=== PATIENT | female | born 1960 | race American Indian/Alaskan Native ===

== ENCOUNTER 2016-12-27 10:07 | Outpatient (CLI) | payer MEDICARE ==
--- NOTE | 2016-12-27 10:52 | Mammography Report ---
Bilateral mammogram: Compared to 12/04/15 and 01/09/16. CAD study utilized. Findings: Predominance adipose tissue bilaterally. Benign densities right breast without interval change. No microcalcification. Benign axillary nodes. Impression: Benign findings. Annual followup recommended. BI-RADS CATEGORY: 2 = Benign ACR BI-RADS MAMMOGRAPHIC CODES: 0 = Needs additional imaging evaluation; 1 = Negative; 2 = Benign; 3 = Probably benign; 4 = Suspicious; 5 = Malignant; 6 = Known biopsy-proven malignancy COMMENT: 1. Dense breast tissue, i.e., adenosis, fibrocystic changes, etc., may obscure an underlying neoplasm. 2. Approximately 10% of cancers are not detected with mammography. 3. A negative mammography report should not delay biopsy if a clinically suspicious mass is present. COMMENT: Patient follow-up letters are generated in [employer].
== END 2016-12-27 10:08 | disposition home or self-care (01) ==
LOC: MAMMO 10:07
DX: Z12.31 Encounter for screening mammogram for malignant neoplasm of breast (principal); I10 Essential (primary) hypertension; E11.9 Type 2 diabetes mellitus without complications
CPT/HCPCS: 77067; G0202

== ENCOUNTER 2017-03-26 08:05 | Outpatient (CLI) | payer MEDICARE ==
[2017-03-26] MEDS ORDERED: XYLOCAINE TOPICAL 4% TP ONE (08:57)
[2017-03-26] MEDS ORDERED: SILVER NITRATE TP ONE ×2 (09:32→09:46)
[2017-03-26] MEDS ORDERED: NACL 0.9% 500 ML IR ONE (09:56)
[2017-03-26] MEDS ORDERED: NACL 0.9% IR PRN (10:07)
== END 2017-03-26 08:06 | disposition home or self-care (01) ==
LOC: WOUND 08:05
PROVIDERS: ATTEND Surgery
DX: E11.622 Type 2 diabetes mellitus with other skin ulcer (principal); L97.821 Non-pressure chronic ulcer of other part of left lower leg limited to breakdown of skin; I10 Essential (primary) hypertension
CPT/HCPCS: 11042; 17250; G0463

== ENCOUNTER 2017-04-02 13:06 | Outpatient (CLI) | payer MEDICARE ==
[2017-04-02] MEDS ORDERED: XYLOCAINE TOPICAL 4% TP ONE ×2 (13:39→13:48)
== END 2017-04-02 13:07 | disposition home or self-care (01) ==
LOC: WOUND 13:06
PROVIDERS: ATTEND Surgery
DX: E11.622 Type 2 diabetes mellitus with other skin ulcer (principal); L97.822 Non-pressure chronic ulcer of other part of left lower leg with fat layer exposed; I10 Essential (primary) hypertension

== ENCOUNTER 2017-04-09 13:13 | Outpatient (CLI) | payer MEDICARE ==
[2017-04-09] MEDS ORDERED: XYLOCAINE TOPICAL 4% TP ONE ×2 (13:26→13:31)
[2017-04-09] MEDS ORDERED: NACL 0.9% 500 ML IR ONE (14:18)
[2017-04-10] MEDS ORDERED: NACL 0.9% IR PRN (16:05)
== END 2017-04-09 13:14 | disposition home or self-care (01) ==
LOC: WOUND 13:13
PROVIDERS: ATTEND Surgery
DX: I87.2 Venous insufficiency (chronic) (peripheral) (principal); L97.822 Non-pressure chronic ulcer of other part of left lower leg with fat layer exposed; I10 Essential (primary) hypertension

== ENCOUNTER 2017-04-16 13:01 | Outpatient (CLI) | payer MEDICARE ==
[2017-04-16] MEDS ORDERED: XYLOCAINE TOPICAL 4% TP ONE (14:00)
== END 2017-04-16 13:02 | disposition home or self-care (01) ==
LOC: WOUND 13:01
PROVIDERS: ATTEND Surgery
DX: E11.622 Type 2 diabetes mellitus with other skin ulcer (principal); L97.822 Non-pressure chronic ulcer of other part of left lower leg with fat layer exposed; I10 Essential (primary) hypertension

== ENCOUNTER 2017-04-19 07:46 | Emergency (ER) | payer MEDICARE ==
[2017-04-19 08:59] LABS: Basophils % (Auto) 0.9 % (0.0-1.8); Eosinophils % (Auto) 2.3 % (0.0-4.3); Hematocrit 35.5 % (30.3-42.9); Hemoglobin 11.6 gm/dl (10.1-14.3); Mean Corpuscular HGB Conc 33 % (30-34); Mean Corpuscular Volume 79 fl (79-97); Platelet Count 248 K/mm3 (140-440); Red Cell Distribution Width 14.2 % (13.2-15.2); White Blood Count 7.1 K/mm3 (4.5-11.0)
[2017-04-19 09:02] LABS: Anion Gap 13 mmol/L; BUN/Creatinine Ratio 14.44; Blood Urea Nitrogen 13 mg/dL (7-17); Calcium 8.8 mg/dL (8.4-10.2); Carbon Dioxide 29 mmol/L (22-30); Chloride 97.8 mmol/L (98-107); Glucose 281 mg/dL (65-100); Potassium 3.9 mmol/L (3.6-5.0); Sodium 136 mmol/L (137-145)
[2017-04-19 09:18] LABS: INR 3.56 (0.87-1.13)
[2017-04-19 09:21] LABS: Mean Corpuscular Hemoglobin 26 pg (28-32)
[2017-04-19 09:40] LABS: Partial Thromboplastin Time 63.1 Sec. (24.2-36.6)
--- NOTE | 2017-04-19 17:15 | Emergency Department Report ---
ED General Adult HPI - General Chief complaint: Extremity Injury, Lower Stated complaint: OPEN ULCER ON BACK OF LEG AND BLOOD CLOT Time Seen by Provider: 04/19/17 17:14 Source: patient, RN notes reviewed, old records reviewed Mode of arrival: Ambulatory Limitations: Physical Limitation - History of Present Illness Initial comments: This is a 56-year-old female, she is previously unknown to this provider. Has a past medical history of left lower extremity DVT, currently on anticoagulation , currently going to local wound care. Presents to the ER with acute on chronic left lower extremity pain. Pain is achy, increases with palpation and range of motion, and it decreases with rest. It does not radiate anywhere. No headache, neck pain, chest pain, abdominal pain, short of breath, fevers or chills. No hematemesis or bright red blood per rectum. Patient also indicates that she needs a refill on her diabetic medication; Lantus -: Gradual Location: left, lower extremity Quality: aching Consistency: intermittent Improves with: rest Worsens with: movement Associated Symptoms: denies other symptoms - Related Data Home Medications Medication Instructions Recorded Confirmed Last Taken Lisinopril [Zestril TAB] 10 mg PO QDAY 01/13/14 01/30/14 01/30/14 Triamterene [Dyrenium] 50 mg PO DAILY 01/14/14 01/30/14 01/30/14 glyBURIDE [Diabeta] 5 mg PO BID 01/14/14 01/30/14 01/30/14 Previous Rx's Medication Instructions Recorded Last Taken Type Insulin Glargine,Hum.rec.anlog 30 unit SQ QHS 30 Days 01/17/14 01/30/14 Rx [Lantus] Warfarin Sodium [Coumadin] 7.5 mg PO DAILY #30 tablet 01/17/14 01/30/14 Rx Enoxaparin [Lovenox] 70 mg SUB-Q Q12HR #8 syringe 02/04/14 Unknown Rx oxyCODONE /ACETAMINOPHEN [Percocet 1 tab PO Q6H PRN #15 tablet 02/04/14 Unknown Rx 5/325 mg] Acetaminophen [Tylenol Arthritis] 650 mg PO Q6HR PRN #30 tablet.er 04/19/17 Unknown Rx Insulin Glargine [Lantus] 20 units SQ QHS #1 vial 04/19/17 Unknown Rx Mupirocin [Bactroban 2%] 1 applic TP TID #1 tube 04/19/17 Unknown Rx Allergies Allergy/AdvReac Type Severity Reaction Status Date / Time No Known Allergies Allergy Verified 04/19/17 08:14 ED Review of Systems ROS: Stated complaint: OPEN ULCER ON BACK OF LEG AND BLOOD CLOT Other details as noted in HPI Constitutional: denies: fever Eyes: denies: eye discharge ENT: denies: epistaxis Respiratory: denies: cough Cardiovascular: denies: chest pain Genitourinary: denies: dysuria Musculoskeletal: arthralgia, myalgia Skin: rash, lesions ED Past Medical Hx - Past Medical History Hx Hypertension: Yes Hx Congestive Heart Failure: No Hx Diabetes: Yes Hx Deep Vein Thrombosis: Yes Hx Asthma: No Hx COPD: No - Surgical History Additional Surgical History: c section x 2 - Social History Smoking Status: Never Smoker Substance Use Type: Alcohol, Prescribed - Medications Home Medications: Home Medications Medication Instructions Recorded Confirmed Last Taken Type Lisinopril [Zestril TAB] 10 mg PO QDAY 01/13/14 01/30/14 01/30/14 History Triamterene [Dyrenium] 50 mg PO DAILY 01/14/14 01/30/14 01/30/14 History glyBURIDE [Diabeta] 5 mg PO BID 01/14/14 01/30/14 01/30/14 History Insulin Glargine,Hum.rec.anlog 30 unit SQ QHS 30 Days 01/17/14 01/30/14 Rx [Lantus] Warfarin Sodium [Coumadin] 7.5 mg PO DAILY #30 tablet 01/17/14 01/30/14 Rx Enoxaparin [Lovenox] 70 mg SUB-Q Q12HR #8 syringe 02/04/14 Unknown Rx oxyCODONE /ACETAMINOPHEN [Percocet 1 tab PO Q6H PRN #15 tablet 02/04/14 Unknown Rx 5/325 mg] Acetaminophen [Tylenol Arthritis] 650 mg PO Q6HR PRN #30 tablet.er 04/19/17 Unknown Rx Insulin Glargine [Lantus] 20 units SQ QHS #1 vial 04/19/17 Unknown Rx Mupirocin [Bactroban 2%] 1 applic TP TID #1 tube 04/19/17 Unknown Rx ED Physical Exam - General Limitations: No Limitations General appearance: alert, in no apparent distress - Head Head exam: Present: atraumatic, normocephalic - Eye Eye exam: Present: normal appearance, EOMI. Absent: nystagmus - ENT ENT exam: Present: normal exam, normal orophraynx, mucous membranes moist, normal external ear exam - Neck Neck exam: Present: normal inspection, full ROM. Absent: tenderness, meningismus - Respiratory Respiratory exam: Present: normal lung sounds bilaterally. Absent: respiratory distress, wheezes, rales, rhonchi, stridor, chest wall tenderness, accessory muscle use, decreased breath sounds, prolonged expiratory - Cardiovascular Cardiovascular Exam: Present: regular rate, normal rhythm, normal heart sounds. Absent: bradycardia, tachycardia, irregular rhythm, systolic murmur, diastolic murmur, rubs, gallop - GI/Abdominal GI/Abdominal exam: Present: soft, normal bowel sounds. Absent: distended, tenderness, guarding, rebound, rigid, pulsatile mass - Extremities Exam Extremities exam: Present: normal inspection, tenderness, normal capillary refill, calf tenderness, other (left lower extremity has chronic-appearing ulcerations, soft, there is minimal surrounding erythema, there is no streaking , there is no crepitus, 2+ pulses are noted in the bilateral upper and lower extremities,). Absent: pedal edema, joint swelling - Back Exam Back exam: Present: normal inspection, full ROM. Absent: tenderness, CVA tenderness (R), CVA tenderness (L), muscle spasm, paraspinal tenderness, vertebral tenderness - Neurological Exam Neurological exam: Present: alert, oriented X3, normal gait (patient walks with a slight limp), other (Extraocular movements intact. Tongue midline. No facial droop. Facial sensation intact to light touch in the V1, V2, V3 distribution bilaterally. 5 and 5 strength in 4 extremities.. Sensation is intact to light touch in 4 extremities.). Absent: motor sensory deficit - Psychiatric Psychiatric exam: Present: normal affect, normal mood - Skin Skin exam: Present: warm, rash ED Course Vital Signs 04/19/17 04/19/17 08:07 17:37 Temperature 98.4 F 98.7 F Pulse Rate 102 H 98 H Respiratory 17 19 Rate Blood Pressure 179/98 Blood Pressure 187/84 [Right] O2 Sat by Pulse 99 100 Oximetry ED Medical Decision Making - Lab Data Result diagrams: 04/19/17 08:31 04/19/17 08:31 Vital Signs 04/19/17 08:07 Temperature 98.4 F Pulse Rate 102 H Respiratory 17 Rate Blood Pressure 179/98 O2 Sat by Pulse 99 Oximetry Labs 04/19/17 04/19/17 04/19/17 08:07 08:31 08:31 WBC 7.1 RBC 4.50 Hgb 11.6 Hct 35.5 MCV 79 MCH 26 L MCHC 33 RDW 14.2 Plt Count 248 Lymph % (Auto) 30.9 [place] % (Auto) 7.5 H Eos % (Auto) 2.3 Baso % (Auto) 0.9 Lymph # 2.2 [place] # 0.5 Eos # 0.2 Baso # 0.1 Seg Neutrophils % 58.4 Seg Neutrophils # 4.1 PT INR APTT Sodium 136 L Potassium 3.9 Chloride 97.8 L Carbon Dioxide 29 Anion Gap 13 BUN 13 Creatinine 0.9 Estimated GFR > 60 BUN/Creatinine Ratio 14.44 Glucose 281 H POC Glucose 325 H Calcium 8.8 04/19/17 04/19/17 08:31 16:39 WBC RBC Hgb Hct MCV MCH MCHC RDW Plt Count Lymph % (Auto) [place] % (Auto) Eos % (Auto) Baso % (Auto) Lymph # [place] # Eos # Baso # Seg Neutrophils % Seg Neutrophils # PT 35.9 H INR 3.56 H APTT 63.1 H* Sodium Potassium Chloride Carbon Dioxide Anion Gap BUN Creatinine Estimated GFR BUN/Creatinine Ratio Glucose POC Glucose 312 H Calcium - Radiology Data Radiology results: report reviewed, image reviewed [facility] JORGE A SWIFT Female : 1960 MedRec# [id number] 04/19/17 10:21 - Radiology Dept. Note by CRUZ OLMOS Acct Num: [id number] : 1960 Patient Age: 56 LLE VENOUS DUPLEX COMPLETED. VAS LAB PRELIMINARY REPORT; NO EVIDENCE OF ACUTE DVT NOTED. CHRONIC / RECANALIZED TRACES OF THROMBUS NOTED IN LT. POP V AND PERONEAL V'S. DOMINANT INGUINAL LYMPH NODE NOTED IN LT. GROIN. PHYSICIANS REPORT TO FOLLOW...(RSK) Initialized on 04/19/17 10:21 - END OF NOTE - Medical Decision Making Differential diagnosis: Stasis dermatitis, recurrent DVT, medication refill, incidental hyperglycemia, incidental hypertension, supratherapeutic INR Assessment and plan: 56-year-old female with chronic left lower extremity pain, ulceration, or any following up with outpatient wound care, presenting with acute on chronic pain. She is afebrile, tachycardia has resolved, with chronic hypertension. She reports having an appointment with a new primary care doctor on April 29. She requested a refill for her Lantus medication. I appreciated the patient has minimal erythema surrounding her wound, however this is most likely a stasis dermatitis. She is following up on a weekly basis with the local wound care center, and there does not appear to be any emergent condition at this time. Given that she is on systemic anticoagulation, she is not a candidate for NSAIDs. She is able to weight-bear, and a notably the patient requires narcotic therapy at this time. She will be discharged with acetaminophen for pain, Bactroban ointment, Lantus refill, instructions to closely follow up with outpatient wound care and primary care. Return precautions are reviewed. Critical care attestation.: If time is entered above; I have spent that time in minutes in the direct care of this critically ill patient, excluding procedure time. ED Disposition Clinical Impression: Left leg pain, Supratherapeutic INR, Elevated blood pressure reading Disposition: -01 TO HOME OR SELFCARE Is pt being admited?: No Does the pt Need Aspirin: No Condition: Stable Additional Instructions: Continue current outpatient medications. Follow-up with the primary care doctor within the next 3-4 weeks for hypertension and hyperglycemia. It is very important to closely follow up with outpatient primary care, is poorly controlled blood pressure and diabetes can result in , disability, paralysis, heart attack and stroke. Continue weekly wound care, the lesions noted on the left lower extremity are mostly chronic ulcerations with a component of stasis dermatitis. These typically did not require oral or systemic antibiotics. INR/Coumadin level was elevated, decreased Coumadin to 2.5 mg for the next 2 days,, then follow up with the primary care doctor or medical professional in 48 hours for INR recheck. Return to the ER right away with fevers, chills, lethargy, irritability, projectile vomiting, change in mental status, inability to tolerate liquid feeds. Prescriptions: Insulin Glargine [Lantus] 20 units SQ QHS #1 vial Acetaminophen [Tylenol Arthritis] 650 mg PO Q6HR PRN #30 tablet.er PRN Reason: Pain Mupirocin [Bactroban 2%] 1 applic TP TID #1 tube Referrals: PRIMARY CARE, [Primary Care Provider] - 3-5 Days BIMAL BRYANT MD [Referring] - 3-5 Days MIRIAM BRYANT MD [Staff Physician] - 3-5 Days
[2017-04-19] MEDS ORDERED: TYLENOL PO ONE (17:30)
[2017-04-19 17:38] VITALS: BP 187/84
--- NOTE | 2017-04-21 07:32 | Vascular Lab Report ---
Left Lower Extremity Venous Duplex Study: Reason for Exam: Pain and swelling of the left lower extremity. Comments on the Right: Nonocclusive deep venous thrombosis is noted of the peroneal vein extending into the popliteal vein. The remaining veins visualized are freely compressible without evidence of internal echogenicity. Spontaneous and phasic flow is present proximally. Comments on the Left: All veins visualized are freely compressible without evidence of internal echogenicity. Flow is spontaneous and phasic throughout. No evidence of acute or chronic thrombus is seen in any of the vessels visualized. Impression: Chronic deep venous thrombosis in the left lower extremity
== END 2017-04-19 18:01 | disposition home or self-care (01) ==
LOC: ED 07:46
DX: M79.605 Pain in left leg (principal); I10 Essential (primary) hypertension; R79.1 Abnormal coagulation profile; E11.9 Type 2 diabetes mellitus without complications
CPT/HCPCS: 36415; 80048; 82962; 85025; 85610; 85730

== ENCOUNTER 2017-04-23 13:45 | Outpatient (CLI) | payer MEDICARE ==
[2017-04-23] MEDS ORDERED: XYLOCAINE TOPICAL 4% TP ONE ×3 (14:02→14:28)
== END 2017-04-23 13:46 | disposition home or self-care (01) ==
LOC: WOUND 13:45
PROVIDERS: ATTEND Surgery
DX: E11.622 Type 2 diabetes mellitus with other skin ulcer (principal); L97.822 Non-pressure chronic ulcer of other part of left lower leg with fat layer exposed; I10 Essential (primary) hypertension

== ENCOUNTER 2017-04-30 14:16 | Outpatient (CLI) | payer MEDICARE ==
[2017-04-30] MEDS ORDERED: XYLOCAINE TOPICAL 4% TP ONE ×2 (14:27→14:44)
[2017-04-30] MEDS ORDERED: XYLOCAINE TOPICAL 2% TP ONE ×2 (14:27→14:43)
== END 2017-04-30 14:17 | disposition home or self-care (01) ==
LOC: WOUND 14:16
PROVIDERS: ATTEND Surgery
DX: E11.622 Type 2 diabetes mellitus with other skin ulcer (principal); L97.822 Non-pressure chronic ulcer of other part of left lower leg with fat layer exposed; E11.40 Type 2 diabetes mellitus with diabetic neuropathy, unspecified; I10 Essential (primary) hypertension

== ENCOUNTER 2017-05-07 08:29 | Outpatient (CLI) | payer MEDICARE ==
[2017-05-07] MEDS ORDERED: XYLOCAINE TOPICAL 4% TP ONE ×2 (08:54→09:08)
[2017-05-07] MEDS ORDERED: XYLOCAINE TOPICAL 2% TP ONE ×2 (09:04→09:08)
[2017-05-07] MEDS ORDERED: SILVER NITRATE TP ONE ×2 (09:39→15:10)
== END 2017-05-07 08:30 | disposition home or self-care (01) ==
LOC: WOUND 08:29
PROVIDERS: ATTEND Surgery
DX: E11.622 Type 2 diabetes mellitus with other skin ulcer (principal); L97.822 Non-pressure chronic ulcer of other part of left lower leg with fat layer exposed; I10 Essential (primary) hypertension

== ENCOUNTER 2017-05-13 08:27 | Outpatient (CLI) | payer MEDICARE ==
--- NOTE | 2017-05-14 08:09 | Vascular Lab Report ---
Left Lower Extremity Venous Duplex Study: Reason for Exam: Pain of the left lower extremity. Comments on the Right: A limited duplex study was done of the proximal veins of the right lower extremity. All veins visualized are freely compressible without evidence of internal echogenicity. Flow is spontaneous and phasic throughout. No evidence of acute or chronic thrombus is seen in any of the vessels visualized. Comments on the Left: Chronic nonocclusive deep venous thrombosis is noted of the popliteal vein. The remaining veins visualized are freely compressible without evidence of internal echogenicity. Spontaneous and phasic flow is present proximally. Impression: Chronic deep venous thrombosis in the left lower extremity
== END 2017-05-13 08:28 | disposition home or self-care (01) ==
LOC: VAS 08:27
PROVIDERS: ATTEND Surgery
DX: I82.532 Chronic embolism and thrombosis of left popliteal vein (principal)

== ENCOUNTER 2017-05-14 08:26 | Outpatient (CLI) | payer MEDICARE ==
[2017-05-14] MEDS ORDERED: XYLOCAINE TOPICAL 2% TP ONE ×2 (08:54→10:00)
[2017-05-14] MEDS ORDERED: XYLOCAINE TOPICAL 4% TP ONE ×2 (08:54→09:00)
[2017-05-14] MEDS ORDERED: AD OINTMENT TP ONE (09:25)
[2017-05-15] MEDS ORDERED: AD OINTMENT TP SCH (10:00)
== END 2017-05-14 08:27 | disposition home or self-care (01) ==
LOC: WOUND 08:26
PROVIDERS: ATTEND Surgery
DX: E11.622 Type 2 diabetes mellitus with other skin ulcer (principal); L97.822 Non-pressure chronic ulcer of other part of left lower leg with fat layer exposed; E11.40 Type 2 diabetes mellitus with diabetic neuropathy, unspecified; I10 Essential (primary) hypertension
CPT/HCPCS: A6250

== ENCOUNTER 2017-05-21 08:29 | Outpatient (CLI) | payer MEDICARE, MEDICAID ==
[2017-05-21] MEDS ORDERED: XYLOCAINE TOPICAL 2% TP ONE ×2 (08:47→09:02)
[2017-05-21] MEDS ORDERED: XYLOCAINE TOPICAL 4% TP ONE ×2 (08:47→09:02)
== END 2017-05-21 08:30 | disposition home or self-care (01) ==
LOC: WOUND 08:29
PROVIDERS: ATTEND Surgery
DX: E11.622 Type 2 diabetes mellitus with other skin ulcer (principal); L97.822 Non-pressure chronic ulcer of other part of left lower leg with fat layer exposed

== ENCOUNTER 2017-05-26 12:45 | Outpatient (CLI) | payer MEDICARE ==
--- NOTE | 2017-05-27 07:29 | Vascular Lab Report ---
LEFT LOWER EXTREMITY ARTERIAL DUPLEX: REASON FOR EXAM: Left leg ulcer. COMMENTS ON THE LEFT: Triphasic waveforms are seen proximally. Triphasic waveforms are seen distally. No significant velocity gradients are identified. No focal significant plaque is identified. Findings are consistent with normal perfusion. Findings are consistent with the ability to heal distal wounds. IMPRESSION: LEFT:Essentially normal arterial flow.
== END 2017-05-26 12:46 | disposition home or self-care (01) ==
LOC: VAS 12:45
PROVIDERS: ATTEND Surgery
DX: L97.822 Non-pressure chronic ulcer of other part of left lower leg with fat layer exposed (principal)

== ENCOUNTER 2017-05-28 08:42 | Outpatient (CLI) | payer MEDICARE ==
[2017-05-28] MEDS ORDERED: XYLOCAINE TOPICAL 4% TP ONE (08:47)
[2017-05-28] MEDS ORDERED: NACL 0.9% 500 ML IR ONE (10:10)
[2017-05-28] MEDS ORDERED: NACL 0.9% IR PRN (13:40)
== END 2017-05-28 08:43 | disposition home or self-care (01) ==
LOC: WOUND 08:42
PROVIDERS: ATTEND Surgery
DX: E11.622 Type 2 diabetes mellitus with other skin ulcer (principal); L97.822 Non-pressure chronic ulcer of other part of left lower leg with fat layer exposed; I10 Essential (primary) hypertension

== ENCOUNTER 2017-06-11 08:20 | Outpatient (CLI) | payer MEDICARE ==
[2017-06-11] MEDS ORDERED: XYLOCAINE TOPICAL 2% TP ONE (09:05)
[2017-06-11] MEDS ORDERED: XYLOCAINE TOPICAL 4% TP ONE (09:05)
[2017-06-11] MEDS ORDERED: NACL 0.9% IR PRN (09:06)
== END 2017-06-11 08:21 | disposition home or self-care (01) ==
LOC: WOUND 08:20
PROVIDERS: ATTEND Surgery
DX: E11.622 Type 2 diabetes mellitus with other skin ulcer (principal); L97.822 Non-pressure chronic ulcer of other part of left lower leg with fat layer exposed; I10 Essential (primary) hypertension

== ENCOUNTER 2017-06-25 08:30 | Outpatient (CLI) | payer MEDICARE ==
[2017-06-25] MEDS ORDERED: XYLOCAINE TOPICAL 2% 30ML TP ONE (08:56)
[2017-06-25] MEDS ORDERED: XYLOCAINE TOPICAL 4% TP ONE ×2 (08:56→09:09)
[2017-06-25] MEDS ORDERED: XYLOCAINE TOPICAL 2% 5ML ONE (09:08)
[2017-06-25] MEDS ORDERED: DAKIN'S FULL STRENGTH TP ONE (09:51)
== END 2017-06-25 08:31 | disposition home or self-care (01) ==
LOC: WOUND 08:30
PROVIDERS: ATTEND Surgery
DX: E11.622 Type 2 diabetes mellitus with other skin ulcer (principal); L97.822 Non-pressure chronic ulcer of other part of left lower leg with fat layer exposed; I10 Essential (primary) hypertension

== ENCOUNTER 2017-07-02 08:34 | Outpatient (CLI) | payer MEDICARE ==
[2017-07-02] MEDS ORDERED: XYLOCAINE TOPICAL 4% TP ONE (08:40)
[2017-07-02] MEDS ORDERED: XYLOCAINE TOPICAL 2% 5ML ONE (08:40)
[2017-07-02] MEDS ORDERED: NACL 0.9% 500 ML IR ONE (09:56)
== END 2017-07-02 08:35 | disposition home or self-care (01) ==
LOC: WOUND 08:34
PROVIDERS: ATTEND Surgery
DX: E11.622 Type 2 diabetes mellitus with other skin ulcer (principal); L97.822 Non-pressure chronic ulcer of other part of left lower leg with fat layer exposed; I10 Essential (primary) hypertension

== ENCOUNTER 2017-07-09 08:45 | Outpatient (CLI) | payer MEDICARE ==
[2017-07-09] MEDS ORDERED: XYLOCAINE TOPICAL 2% 30ML TP ONE (09:10)
[2017-07-09] MEDS ORDERED: XYLOCAINE TOPICAL 4% TP ONE (09:10)
[2017-07-09] MEDS ORDERED: XYLOCAINE TOPICAL 2% 5ML ONE (09:14)
[2017-07-09] MEDS ORDERED: SILVER NITRATE TP ONE (09:54)
== END 2017-07-09 08:46 | disposition home or self-care (01) ==
LOC: WOUND 08:45
PROVIDERS: ATTEND Surgery
DX: E11.622 Type 2 diabetes mellitus with other skin ulcer (principal); L97.822 Non-pressure chronic ulcer of other part of left lower leg with fat layer exposed; I10 Essential (primary) hypertension

== ENCOUNTER 2017-07-16 08:31 | Outpatient (CLI) | payer MEDICARE ==
[2017-07-16] MEDS ORDERED: XYLOCAINE TOPICAL 4% TP ONE ×2 (08:51→09:01)
[2017-07-16] MEDS ORDERED: XYLOCAINE TOPICAL 2% 5ML ONE (08:51)
[2017-07-16] MEDS ORDERED: XYLOCAINE TOPICAL 2% 5ML TP ONE (09:02)
== END 2017-07-16 08:32 | disposition home or self-care (01) ==
LOC: WOUND 08:31
PROVIDERS: ATTEND Surgery
DX: E11.622 Type 2 diabetes mellitus with other skin ulcer (principal); L97.822 Non-pressure chronic ulcer of other part of left lower leg with fat layer exposed; I10 Essential (primary) hypertension

== ENCOUNTER 2017-07-22 08:10 | Outpatient (CLI) | payer MEDICARE ==
[2017-07-22] MEDS ORDERED: XYLOCAINE TOPICAL 4% TP ONE (08:33)
[2017-07-22] MEDS ORDERED: AD OINTMENT TP ONE (09:47)
[2017-07-23] MEDS ORDERED: AD OINTMENT TP SCH (10:00)
== END 2017-07-22 08:11 | disposition home or self-care (01) ==
LOC: WOUND 08:10
PROVIDERS: ATTEND Surgery
DX: E11.622 Type 2 diabetes mellitus with other skin ulcer (principal); L97.822 Non-pressure chronic ulcer of other part of left lower leg with fat layer exposed; I10 Essential (primary) hypertension
CPT/HCPCS: A6250

== ENCOUNTER 2017-07-22 10:07 | Emergency (ER) | payer MEDICARE ==
[2017-07-22 11:01] VITALS: BP 164/84
[2017-07-22] MEDS ORDERED: FUL-GLO OP ONE (14:59)
--- NOTE | 2017-07-22 15:17 | Emergency Department Report ---
ED Eye Problem HPI - General Chief complaint: Eye Problems Stated complaint: LEFT EYE PAIN Time Seen by Provider: 07/22/17 13:14 Source: patient Mode of arrival: Ambulatory Limitations: No Limitations - History of Present Illness Initial comments: 56-year-old female past medical history DVT on Coumadin, HTN, Dmt2 presents with complaint of over one month of intermittent blurry vision left eye. Patient also states she has foreign body sensation with scratchy sensation left eye. Patient states that she has artificial eyelashes which may have scratched the surface of her eye. Patient denies discharge denies eye pain but does have slight foreign body sensation and occasional itching. Patient states she was supposed to follow-up with an tint layer earlier this month but has rescheduled see an tint layer on 07/29/2017. Tetanus vaccine up-to-date. Patient also states she has not had her glasses prescription adjusted in over 6 years. MD chief complaint: vision change Onset/Timin -: month(s) Location: left eye Place: home Eye Symptoms: redness, foreign body sensation, itching, blurry vision Severity: moderate Associated Symptoms: none Treatments Prior to Arrival: none - Related Data Patient Tetanus UTD: No Home Medications Medication Instructions Recorded Confirmed Last Taken Lisinopril [Zestril TAB] 10 mg PO QDAY 01/13/14 01/30/14 01/30/14 Triamterene [Dyrenium] 50 mg PO DAILY 01/14/14 01/30/14 01/30/14 glyBURIDE [Diabeta] 5 mg PO BID 01/14/14 01/30/14 01/30/14 Previous Rx's Medication Instructions Recorded Last Taken Type Insulin Glargine,Hum.rec.anlog 30 unit SQ QHS 30 Days ml 01/17/14 01/30/14 Rx [Lantus] Warfarin Sodium [Coumadin] 7.5 mg PO DAILY #30 tablet 01/17/14 01/30/14 Rx Enoxaparin [Lovenox] 70 mg SUB-Q Q12HR #8 syringe 02/04/14 Unknown Rx oxyCODONE /ACETAMINOPHEN [Percocet 1 tab PO Q6H PRN #15 tablet 02/04/14 Unknown Rx 5/325 mg] Acetaminophen [Tylenol Arthritis] 650 mg PO Q6HR PRN #30 tablet.er 04/19/17 Unknown Rx Insulin Glargine [Lantus] 20 units SQ QHS #1 vial 04/19/17 Unknown Rx Mupirocin [Bactroban 2%] 1 applic TP TID #1 tube 04/19/17 Unknown Rx Naphazoline HCl/Pheniramine 10 ml OP Q6H PRN #1 drops 07/22/17 Unknown Rx [Naphcon-A Eye Drops] Tobramycin 0.3% [Tobrex] 1 drop OS Q4H #1 bottle 07/22/17 Unknown Rx Allergies Allergy/AdvReac Type Severity Reaction Status Date / Time sulfamethoxazole Allergy Nausea Verified 07/22/17 10:54 [From Bactrim] trimethoprim [From Bactrim] Allergy Nausea Verified 07/22/17 10:54 ED Review of Systems ROS: Stated complaint: LEFT EYE PAIN Other details as noted in HPI Constitutional: denies: chills, fever Eyes: vision change (blurry vision right eye). denies: eye pain, eye discharge ENT: denies: ear pain, throat pain Respiratory: denies: cough, shortness of breath, wheezing Cardiovascular: denies: chest pain, palpitations Endocrine: no symptoms reported Gastrointestinal: denies: abdominal pain, nausea, diarrhea Genitourinary: denies: urgency, dysuria, discharge Musculoskeletal: denies: back pain, joint swelling, arthralgia Skin: denies: rash, lesions Neurological: denies: headache, weakness, paresthesias Psychiatric: denies: anxiety, depression Hematological/Lymphatic: denies: easy bleeding, easy bruising ED Past Medical Hx - Past Medical History Hx Hypertension: Yes Hx Congestive Heart Failure: No Hx Diabetes: Yes Hx Deep Vein Thrombosis: Yes Hx Asthma: No Hx COPD: No - Surgical History Additional Surgical History: c section x 2 - Social History Smoking Status: Never Smoker Substance Use Type: None, Alcohol - Medications Home Medications: Home Medications Medication Instructions Recorded Confirmed Last Taken Type Lisinopril [Zestril TAB] 10 mg PO QDAY 01/13/14 01/30/14 01/30/14 History Triamterene [Dyrenium] 50 mg PO DAILY 01/14/14 01/30/14 01/30/14 History glyBURIDE [Diabeta] 5 mg PO BID 01/14/14 01/30/14 01/30/14 History Insulin Glargine,Hum.rec.anlog 30 unit SQ QHS 30 Days ml 01/17/14 01/30/1401/08 Rx [Lantus] Warfarin Sodium [Coumadin] 7.5 mg PO DAILY #30 tablet 01/17/14 01/30/14 Rx Enoxaparin [Lovenox] 70 mg SUB-Q Q12HR #8 syringe 02/04/14 Unknown Rx oxyCODONE /ACETAMINOPHEN [Percocet 1 tab PO Q6H PRN #15 tablet 02/04/14 Unknown Rx 5/325 mg] Acetaminophen [Tylenol Arthritis] 650 mg PO Q6HR PRN #30 tablet.er 04/19/17 Unknown Rx Insulin Glargine [Lantus] 20 units SQ QHS #1 vial 04/19/17 Unknown Rx Mupirocin [Bactroban 2%] 1 applic TP TID #1 tube 04/19/17 Unknown Rx Naphazoline HCl/Pheniramine 10 ml OP Q6H PRN #1 drops 07/22/17 Unknown Rx [Naphcon-A Eye Drops] Tobramycin 0.3% [Tobrex] 1 drop OS Q4H #1 bottle 07/22/17 Unknown Rx ED Physical Exam - General Limitations: No Limitations General appearance: alert, in no apparent distress - Head Head exam: Present: atraumatic, normocephalic - Eye Eye exam: Present: normal appearance, PERRL, EOMI Pupils: Present: normal accommodation - Expanded Eye Exam Expanded Pupils: Regular, Round: Bilateral, Reactive: Bilateral Sclera/Conjunctival: Normal Inspection: Bilateral Anterior chamber: Normal Inspection: Bilateral Posterior chamber: Deferred: Bilateral Visual acuity (R) = 20/: 80 Visual acuity (L) = 20/: 80 With correction: Yes (glasses) IOP (R) in mmH IOP measured with: [employer] - ENT ENT exam: Present: mucous membranes moist - Neck Neck exam: Present: normal inspection - Respiratory Respiratory exam: Present: normal lung sounds bilaterally. Absent: respiratory distress - Cardiovascular Cardiovascular Exam: Present: regular rate, normal rhythm. Absent: systolic murmur, diastolic murmur, rubs, gallop - GI/Abdominal GI/Abdominal exam: Present: soft, normal bowel sounds - Extremities Exam Extremities exam: Present: normal inspection - Back Exam Back exam: Present: normal inspection - Neurological Exam Neurological exam: Present: alert, oriented X3 - Psychiatric Psychiatric exam: Present: normal affect, normal mood - Skin Skin exam: Present: warm, dry, intact, normal color. Absent: rash ED Course Vital Signs 07/22/17 10:54 Temperature 98.4 F Pulse Rate 93 H Respiratory 20 Rate Blood Pressure 164/84 O2 Sat by Pulse 98 Oximetry ED Medical Decision Making - Medical Decision Making A/P: Left corneal abrasion, possible macular degeneration 1- tdap uptodate 2- tobramycin drops, naphcon a drops 3- no clinical amarousis fugax, no acute angle glaucoma, IOP less then 20 x3 left eye. Overall vision 20/80 4- patient states she has follow-up with ophthalmology. I emphasized the importance of follow-up to the patient to mitigate any prison potential permanent eyesight problems. Patient also may have a combination of aggressive diabetic retinopathy and macular degeneration. This is why I emphasized importance of follow-up to ophthalmology. Patient states that she will definitely follow up. Conversation witnessed by her at bedside. Critical care attestation.: If time is entered above; I have spent that time in minutes in the direct care of this critically ill patient, excluding procedure time. ED Disposition Clinical Impression: Blurry vision, left eye Corneal abrasion, left Qualifiers: Encounter type: initial encounter Qualified Code(s): S05.02XA - Injury of conjunctiva and corneal abrasion without foreign body, left eye, initial encounter Disposition: DC-01 TO HOME OR SELFCARE Is pt being admited?: No Does the pt Need Aspirin: No Condition: Stable Instructions: Corneal Abrasion (ED), Age-Related Macular Degeneration: (ED), Diabetic Retinopathy (ED) Prescriptions: Naphazoline HCl/Pheniramine [Naphcon-A Eye Drops] 10 ml OP Q6H PRN #1 drops PRN Reason: Dry Eye(S) Tobramycin 0.3% [Tobrex] 1 drop OS Q4H #1 bottle Referrals: [facility] [Outside] - 3-5 Days [facility] [Outside] - 3-5 Days Forms: Accompanied Note, Work/School Release Form(ED) Time of Disposition: 15:27
[2017-07-22] MEDS ORDERED: TYLENOL PO ONE (15:39)
== END 2017-07-22 15:30 | disposition home or self-care (01) ==
LOC: ED 10:07
DX: S05.02XA Injury of conjunctiva and corneal abrasion without foreign body, left eye, initial encounter (principal); H53.8 Other visual disturbances; I10 Essential (primary) hypertension; E11.9 Type 2 diabetes mellitus without complications; I82.409 Acute embolism and thrombosis of unspecified deep veins of unspecified lower extremity; Z88.2 Allergy status to sulfonamides; Z79.4 Long term (current) use of insulin; X58.XXXA Exposure to other specified factors, initial encounter; Y93.89 Activity, other specified; Y92.89 Other specified places as the place of occurrence of the external cause; Y99.8 Other external cause status
CPT/HCPCS: 82962; 99283

== ENCOUNTER 2017-07-30 08:43 | Outpatient (CLI) | payer MEDICARE ==
[2017-07-30] MEDS ORDERED: XYLOCAINE TOPICAL 2% 5ML ONE (09:10)
[2017-07-30] MEDS ORDERED: XYLOCAINE TOPICAL 4% TP ONE ×2 (09:10→09:18)
[2017-07-30] MEDS ORDERED: XYLOCAINE TOPICAL 2% 5ML TP ONE (09:18)
== END 2017-07-30 08:44 | disposition home or self-care (01) ==
LOC: WOUND 08:43
PROVIDERS: ATTEND Surgery
DX: E11.622 Type 2 diabetes mellitus with other skin ulcer (principal); L97.822 Non-pressure chronic ulcer of other part of left lower leg with fat layer exposed; I10 Essential (primary) hypertension

== ENCOUNTER 2017-08-06 08:41 | Outpatient (CLI) | payer MEDICARE ==
[2017-08-06] MEDS ORDERED: XYLOCAINE TOPICAL 4% TP ONE ×2 (08:55→09:03)
== END 2017-08-06 08:42 | disposition home or self-care (01) ==
LOC: WOUND 08:41
PROVIDERS: ATTEND Surgery
DX: E11.622 Type 2 diabetes mellitus with other skin ulcer (principal); L97.822 Non-pressure chronic ulcer of other part of left lower leg with fat layer exposed; I10 Essential (primary) hypertension

== ENCOUNTER 2017-08-14 08:36 | Outpatient (CLI) | payer MEDICARE ==
[2017-08-14] MEDS ORDERED: XYLOCAINE TOPICAL 4% TP ONE ×3 (09:02→11:53)
[2017-08-14] MEDS ORDERED: NACL 0.9% 500 ML IR ONE (09:04)
[2017-08-14] MEDS ORDERED: NACL 0.9% IR PRN (11:52)
== END 2017-08-14 08:37 | disposition home or self-care (01) ==
LOC: WOUND 08:36
PROVIDERS: ATTEND Surgery
DX: E11.622 Type 2 diabetes mellitus with other skin ulcer (principal); L97.822 Non-pressure chronic ulcer of other part of left lower leg with fat layer exposed; I10 Essential (primary) hypertension

== ENCOUNTER 2017-08-20 09:44 | Outpatient (CLI) | payer MEDICARE ==
[2017-08-20] MEDS ORDERED: XYLOCAINE TOPICAL 4% TP ONE (10:10)
== END 2017-08-20 09:45 | disposition home or self-care (01) ==
LOC: WOUND 09:44
PROVIDERS: ATTEND Surgery
DX: E11.622 Type 2 diabetes mellitus with other skin ulcer (principal); L97.822 Non-pressure chronic ulcer of other part of left lower leg with fat layer exposed; I10 Essential (primary) hypertension
CPT/HCPCS: 97607

== ENCOUNTER 2017-08-25 09:11 | Outpatient (CLI) | payer MEDICARE | END 2017-08-25 09:12 | disposition home or self-care (01) | LOC: WOUND 09:11 | PROVIDERS: ATTEND Internal Medicine | DX: E11.622 Type 2 diabetes mellitus with other skin ulcer (principal); L97.822 Non-pressure chronic ulcer of other part of left lower leg with fat layer exposed; I10 Essential (primary) hypertension | CPT/HCPCS: 97608; G0463-25 ==

== ENCOUNTER 2017-08-27 08:37 | Outpatient (CLI) | payer MEDICARE ==
[2017-08-27] MEDS ORDERED: XYLOCAINE TOPICAL 4% TP ONE ×2 (08:53→08:56)
== END 2017-08-27 08:38 | disposition home or self-care (01) ==
LOC: WOUND 08:37
PROVIDERS: ATTEND Surgery
DX: E11.622 Type 2 diabetes mellitus with other skin ulcer (principal); L97.822 Non-pressure chronic ulcer of other part of left lower leg with fat layer exposed; I10 Essential (primary) hypertension
CPT/HCPCS: 97607

== ENCOUNTER 2017-09-03 08:20 | Outpatient (CLI) | payer MEDICARE ==
[2017-09-03] MEDS ORDERED: XYLOCAINE TOPICAL 4% TP ONE (08:37)
[2017-09-03] MEDS ORDERED: AD OINTMENT TP SCH (10:00)
== END 2017-09-03 08:21 | disposition home or self-care (01) ==
LOC: WOUND 08:20
PROVIDERS: ATTEND Surgery
DX: E11.622 Type 2 diabetes mellitus with other skin ulcer (principal); L97.822 Non-pressure chronic ulcer of other part of left lower leg with fat layer exposed; I10 Essential (primary) hypertension
CPT/HCPCS: A6250

== ENCOUNTER 2017-09-17 08:36 | Outpatient (CLI) | payer MEDICARE ==
[2017-09-17] MEDS ORDERED: XYLOCAINE TOPICAL 4% TP ONE (08:42)
== END 2017-09-17 08:37 | disposition home or self-care (01) ==
LOC: WOUND 08:36
PROVIDERS: ATTEND Surgery
DX: E11.622 Type 2 diabetes mellitus with other skin ulcer (principal); L97.822 Non-pressure chronic ulcer of other part of left lower leg with fat layer exposed; I10 Essential (primary) hypertension

== ENCOUNTER 2017-09-24 08:32 | Outpatient (CLI) | payer MEDICARE ==
[2017-09-24] MEDS ORDERED: XYLOCAINE TOPICAL 4% TP ONE (08:44)
== END 2017-09-24 08:33 | disposition home or self-care (01) ==
LOC: WOUND 08:32
PROVIDERS: ATTEND Surgery
DX: E11.622 Type 2 diabetes mellitus with other skin ulcer (principal); L97.822 Non-pressure chronic ulcer of other part of left lower leg with fat layer exposed; I10 Essential (primary) hypertension

== ENCOUNTER 2017-10-01 08:30 | Outpatient (CLI) | payer MEDICARE ==
[2017-10-01] MEDS ORDERED: XYLOCAINE TOPICAL 4% TP ONE (08:54)
== END 2017-10-01 08:31 | disposition home or self-care (01) ==
LOC: WOUND 08:30
PROVIDERS: ATTEND Surgery
DX: E11.622 Type 2 diabetes mellitus with other skin ulcer (principal); L97.822 Non-pressure chronic ulcer of other part of left lower leg with fat layer exposed; I10 Essential (primary) hypertension

== ENCOUNTER 2017-10-08 08:33 | Outpatient (CLI) | payer MEDICARE ==
[2017-10-08] MEDS ORDERED: XYLOCAINE TOPICAL 4% TP ONE ×2 (08:43→08:46)
== END 2017-10-08 08:34 | disposition home or self-care (01) ==
LOC: WOUND 08:33
PROVIDERS: ATTEND Surgery
DX: E11.622 Type 2 diabetes mellitus with other skin ulcer (principal); L97.822 Non-pressure chronic ulcer of other part of left lower leg with fat layer exposed; I10 Essential (primary) hypertension

== ENCOUNTER 2017-10-14 10:08 | Outpatient (CLI) | payer MEDICARE ==
[2017-10-14] MEDS ORDERED: XYLOCAINE TOPICAL 4% TP ONE (10:26)
== END 2017-10-14 10:09 | disposition home or self-care (01) ==
LOC: WOUND 10:08
PROVIDERS: ATTEND Surgery
DX: E11.622 Type 2 diabetes mellitus with other skin ulcer (principal); L97.822 Non-pressure chronic ulcer of other part of left lower leg with fat layer exposed; I10 Essential (primary) hypertension

== ENCOUNTER 2017-10-22 13:31 | Outpatient (CLI) | payer MEDICARE ==
[2017-10-22] MEDS ORDERED: XYLOCAINE TOPICAL 4% TP ONE (13:42)
[2017-10-22] MEDS ORDERED: XYLOCAINE TOPICAL 2% 30ML TP ONE (13:46)
== END 2017-10-22 13:32 | disposition home or self-care (01) ==
LOC: WOUND 13:31
PROVIDERS: ATTEND Surgery
DX: E11.622 Type 2 diabetes mellitus with other skin ulcer (principal); L97.822 Non-pressure chronic ulcer of other part of left lower leg with fat layer exposed; I10 Essential (primary) hypertension

== ENCOUNTER 2017-10-29 13:17 | Outpatient (CLI) | payer MEDICARE ==
[~2017-10-29 13:17] MED LIST: VANCOMYCIN/NS 1 GM/250 ML 1 GM/250 ML BAG IV SCH
[2017-10-29] MEDS ORDERED: XYLOCAINE TOPICAL 4% TP ONE ×2 (13:51→13:57)
== END 2017-10-29 13:18 | disposition home or self-care (01) ==
LOC: WOUND 13:17
PROVIDERS: ATTEND Nurse Practitioner
DX: I87.312 Chronic venous hypertension (idiopathic) with ulcer of left lower extremity (principal); E11.622 Type 2 diabetes mellitus with other skin ulcer; L97.822 Non-pressure chronic ulcer of other part of left lower leg with fat layer exposed
CPT/HCPCS: 11042; 11045; J3370

== ENCOUNTER 2017-11-04 13:55 | Outpatient (CLI) | payer MEDICARE ==
[2017-11-04] MEDS ORDERED: NACL 0.9% 500 ML IR ONE (14:08)
[2017-11-04] MEDS ORDERED: XYLOCAINE TOPICAL 4% TP ONE ×2 (14:08)
[2017-11-04] MEDS ORDERED: NACL 0.9% IR PRN (14:08)
== END 2017-11-04 13:56 | disposition home or self-care (01) ==
LOC: WOUND 13:55
PROVIDERS: ATTEND Surgery
DX: I87.312 Chronic venous hypertension (idiopathic) with ulcer of left lower extremity (principal); E11.622 Type 2 diabetes mellitus with other skin ulcer; L97.822 Non-pressure chronic ulcer of other part of left lower leg with fat layer exposed

== ENCOUNTER 2017-11-12 12:56 | Outpatient (CLI) | payer MEDICARE ==
[2017-11-12] MEDS ORDERED: XYLOCAINE TOPICAL 4% TP ONE (13:13)
== END 2017-11-12 12:57 | disposition home or self-care (01) ==
LOC: WOUND 12:56
PROVIDERS: ATTEND Surgery
DX: I87.312 Chronic venous hypertension (idiopathic) with ulcer of left lower extremity (principal); E11.622 Type 2 diabetes mellitus with other skin ulcer; L97.822 Non-pressure chronic ulcer of other part of left lower leg with fat layer exposed

== ENCOUNTER 2017-11-19 13:10 | Outpatient (CLI) | payer MEDICARE ==
[2017-11-19] MEDS ORDERED: XYLOCAINE TOPICAL 4% TP ONE (13:39)
== END 2017-11-19 13:11 | disposition home or self-care (01) ==
LOC: WOUND 13:10
PROVIDERS: ATTEND Surgery
DX: I87.312 Chronic venous hypertension (idiopathic) with ulcer of left lower extremity (principal); E11.622 Type 2 diabetes mellitus with other skin ulcer; L97.822 Non-pressure chronic ulcer of other part of left lower leg with fat layer exposed

== ENCOUNTER 2017-11-26 13:20 | Outpatient (CLI) | payer MEDICARE ==
[2017-11-26] MEDS ORDERED: XYLOCAINE TOPICAL 4% TP ONE ×2 (13:32→14:17)
== END 2017-11-26 13:21 | disposition home or self-care (01) ==
LOC: WOUND 13:20
PROVIDERS: ATTEND Surgery
DX: I87.312 Chronic venous hypertension (idiopathic) with ulcer of left lower extremity (principal); E11.622 Type 2 diabetes mellitus with other skin ulcer; L97.822 Non-pressure chronic ulcer of other part of left lower leg with fat layer exposed

== ENCOUNTER 2017-12-03 13:15 | Outpatient (CLI) | payer MEDICARE ==
[2017-12-03] MEDS ORDERED: XYLOCAINE TOPICAL 4% TP ONE ×2 (13:24→13:26)
== END 2017-12-03 13:16 | disposition home or self-care (01) ==
LOC: WOUND 13:15
PROVIDERS: ATTEND Surgery
DX: I87.312 Chronic venous hypertension (idiopathic) with ulcer of left lower extremity (principal); E11.622 Type 2 diabetes mellitus with other skin ulcer; L97.822 Non-pressure chronic ulcer of other part of left lower leg with fat layer exposed

== ENCOUNTER 2017-12-10 13:18 | Outpatient (CLI) | payer MEDICARE ==
[2017-12-10] MEDS ORDERED: XYLOCAINE TOPICAL 4% TP ONE (13:20)
== END 2017-12-10 13:19 | disposition home or self-care (01) ==
LOC: WOUND 13:18
PROVIDERS: ATTEND Surgery
DX: I87.312 Chronic venous hypertension (idiopathic) with ulcer of left lower extremity (principal); E11.622 Type 2 diabetes mellitus with other skin ulcer; L97.822 Non-pressure chronic ulcer of other part of left lower leg with fat layer exposed

== ENCOUNTER 2017-12-17 13:10 | Outpatient (CLI) | payer MEDICARE ==
[2017-12-17] MEDS ORDERED: XYLOCAINE TOPICAL 2% 5ML ONE (13:35)
[2017-12-17] MEDS ORDERED: XYLOCAINE TOPICAL 2% 5ML TP ONE (13:42)
== END 2017-12-17 13:11 | disposition home or self-care (01) ==
LOC: WOUND 13:10
PROVIDERS: ATTEND Surgery
DX: I87.312 Chronic venous hypertension (idiopathic) with ulcer of left lower extremity (principal); E11.622 Type 2 diabetes mellitus with other skin ulcer; L97.822 Non-pressure chronic ulcer of other part of left lower leg with fat layer exposed

== ENCOUNTER 2017-12-24 13:20 | Outpatient (CLI) | payer MEDICARE ==
[2017-12-24] MEDS ORDERED: XYLOCAINE TOPICAL 2% 5ML ONE (13:37)
[2017-12-24] MEDS ORDERED: XYLOCAINE TOPICAL 2% 5ML TP ONE (13:46)
== END 2017-12-24 13:21 | disposition home or self-care (01) ==
LOC: WOUND 13:20
PROVIDERS: ATTEND Surgery
DX: I87.312 Chronic venous hypertension (idiopathic) with ulcer of left lower extremity (principal); E11.622 Type 2 diabetes mellitus with other skin ulcer; L97.822 Non-pressure chronic ulcer of other part of left lower leg with fat layer exposed
CPT/HCPCS: 97597

== ENCOUNTER 2017-12-31 13:23 | Outpatient (CLI) | payer MEDICARE ==
[2017-12-31] MEDS ORDERED: XYLOCAINE TOPICAL 4% TP ONE (13:24)
== END 2017-12-31 13:24 | disposition home or self-care (01) ==
LOC: WOUND 13:23
PROVIDERS: ATTEND Surgery
DX: I87.312 Chronic venous hypertension (idiopathic) with ulcer of left lower extremity (principal); E11.622 Type 2 diabetes mellitus with other skin ulcer; L97.822 Non-pressure chronic ulcer of other part of left lower leg with fat layer exposed

== ENCOUNTER 2018-01-07 13:16 | Outpatient (CLI) | payer MEDICARE ==
[2018-01-07] MEDS ORDERED: XYLOCAINE TOPICAL 4% TP ONE (13:27)
== END 2018-01-07 13:17 | disposition home or self-care (01) ==
LOC: WOUND 13:16
PROVIDERS: ATTEND Surgery
DX: I87.312 Chronic venous hypertension (idiopathic) with ulcer of left lower extremity (principal); E11.622 Type 2 diabetes mellitus with other skin ulcer; L97.822 Non-pressure chronic ulcer of other part of left lower leg with fat layer exposed

== ENCOUNTER 2018-01-14 13:34 | Outpatient (CLI) | payer MEDICARE ==
[2018-01-14] MEDS ORDERED: XYLOCAINE TOPICAL 2% 5ML ONE (13:39)
[2018-01-14] MEDS ORDERED: XYLOCAINE TOPICAL 2% 5ML TP ONE (13:54)
== END 2018-01-14 13:35 | disposition home or self-care (01) ==
LOC: WOUND 13:34
PROVIDERS: ATTEND Surgery
DX: I87.312 Chronic venous hypertension (idiopathic) with ulcer of left lower extremity (principal); E11.622 Type 2 diabetes mellitus with other skin ulcer; L97.822 Non-pressure chronic ulcer of other part of left lower leg with fat layer exposed

== ENCOUNTER 2018-01-21 13:25 | Outpatient (CLI) | payer MEDICARE ==
[2018-01-21] MEDS ORDERED: XYLOCAINE TOPICAL 2% 5ML ONE (13:31)
[2018-01-21] MEDS ORDERED: XYLOCAINE TOPICAL 2% 5ML TP ONE (13:38)
== END 2018-01-21 13:26 | disposition home or self-care (01) ==
LOC: WOUND 13:25
PROVIDERS: ATTEND Surgery
DX: I87.312 Chronic venous hypertension (idiopathic) with ulcer of left lower extremity (principal); E11.622 Type 2 diabetes mellitus with other skin ulcer; L97.822 Non-pressure chronic ulcer of other part of left lower leg with fat layer exposed

== ENCOUNTER 2018-02-04 13:25 | Outpatient (CLI) | payer MEDICARE ==
[2018-02-04] MEDS ORDERED: XYLOCAINE TOPICAL 2% 5ML ONE (13:32)
[2018-02-04] MEDS ORDERED: XYLOCAINE TOPICAL 2% 5ML TP ONE (13:39)
== END 2018-02-04 13:26 | disposition home or self-care (01) ==
LOC: WOUND 13:25
PROVIDERS: ATTEND Surgery
DX: I87.312 Chronic venous hypertension (idiopathic) with ulcer of left lower extremity (principal); E11.622 Type 2 diabetes mellitus with other skin ulcer; L97.822 Non-pressure chronic ulcer of other part of left lower leg with fat layer exposed

== ENCOUNTER 2018-02-11 13:09 | Outpatient (CLI) | payer MEDICARE | END 2018-02-11 13:10 | disposition home or self-care (01) | LOC: WOUND 13:09 | PROVIDERS: ATTEND Surgery | DX: I87.312 Chronic venous hypertension (idiopathic) with ulcer of left lower extremity (principal); E11.622 Type 2 diabetes mellitus with other skin ulcer; L97.822 Non-pressure chronic ulcer of other part of left lower leg with fat layer exposed | CPT/HCPCS: 99214; G0463 ==

== ENCOUNTER 2018-02-25 13:11 | Outpatient (CLI) | payer MEDICARE | END 2018-02-25 13:12 | disposition home or self-care (01) | LOC: WOUND 13:11 | PROVIDERS: ATTEND Surgery | DX: I87.312 Chronic venous hypertension (idiopathic) with ulcer of left lower extremity (principal); E11.622 Type 2 diabetes mellitus with other skin ulcer; L97.822 Non-pressure chronic ulcer of other part of left lower leg with fat layer exposed | CPT/HCPCS: 99214; G0463 ==

== ENCOUNTER 2018-11-06 13:39 | Outpatient (CLI) | payer MEDICARE ==
--- NOTE | 2018-11-09 09:16 | Mammography Report ---
BILATERAL DIGITAL SCREENING MAMMOGRAM with CAD: 11/06/18 13:39:00 CLINICAL: Routine screening. COMPARISON:12/27/16 FINDINGS: There are bilateral scattered fibroglandular densities. A left outer asymmetry on the CC view requires additional imaging.No architectural distortion or suspicious calcifications.The right breast is negative. IMPRESSION: Left asymmetry requiring further workup. BI-RADS CATEGORY: 0 -- Additional Imaging Evaluation Required RECOMMENDATION: Recall for left mediolateral and spot magnification CC views and left breast ultrasound if needed. ACR BI-RADS MAMMOGRAPHIC CODES: 0 = Needs additional imaging evaluation; 1 = Negative; 2 = Benign; 3 = Probably benign; 4 = Suspicious; 5 = Malignant; 6 = Known biopsy-proven malignancy COMMENT: 1. Dense breast tissue, i.e., adenosis, fibrocystic changes, etc., may obscure an underlying neoplasm. 2. Approximately 10% of cancers are not detected with mammography. 3. A negative mammography report should not delay biopsy if a clinically suspicious mass is present. COMMENT: Patient follow-up letters are generated via our [employer] application.
== END 2018-11-06 13:40 | disposition home or self-care (01) ==
LOC: MAMMO 13:39
PROVIDERS: ATTEND Family Medicine
DX: Z12.31 Encounter for screening mammogram for malignant neoplasm of breast (principal); E11.9 Type 2 diabetes mellitus without complications; I10 Essential (primary) hypertension
CPT/HCPCS: 77067

== ENCOUNTER 2018-11-25 13:25 | Outpatient (CLI) | payer MEDICARE ==
--- NOTE | 2018-11-25 14:09 | Mammography Report ---
LEFT DIGITAL DIAGNOSTIC MAMMOGRAM : 11/25/18 13:25:00 CLINICAL: Recalled for asymmetry. COMPARISON:11/06/18 screening FINDINGS: Additional mammographic views were performed and are negative. IMPRESSION: Negative Mammogram. BI-RADS CATEGORY: 1 -- Negative RECOMMENDATION: Routine mammographic screening in one year. COMMENT: 1. Dense breast tissue, i.e., adenosis, fibrocystic changes, etc., may obscure an underlying neoplasm. 2. Approximately 10% of cancers are not detected with mammography. 3. A negative mammography report should not delay biopsy if a clinically suspicious mass is present. COMMENT: Patient follow-up letters are generated via our [employer] application.
== END 2018-11-25 13:26 | disposition home or self-care (01) ==
LOC: MAMMO 13:25
PROVIDERS: ATTEND Family Medicine
DX: R92.8 Other abnormal and inconclusive findings on diagnostic imaging of breast (principal); I10 Essential (primary) hypertension; E11.9 Type 2 diabetes mellitus without complications

== ENCOUNTER 2019-04-28 08:01 | Outpatient (CLI) | payer MEDICARE | END 2019-04-28 08:02 | disposition home or self-care (01) | LOC: WOUND 08:01 | PROVIDERS: ATTEND Surgery | DX: S81.801D Unspecified open wound, right lower leg, subsequent encounter (principal); E11.9 Type 2 diabetes mellitus without complications; I10 Essential (primary) hypertension; F41.9 Anxiety disorder, unspecified; X58.XXXD Exposure to other specified factors, subsequent encounter | CPT/HCPCS: 99215; G0463 ==

== ENCOUNTER 2019-05-06 13:00 | Outpatient (CLI) | payer MEDICARE | END 2019-05-06 13:01 | disposition home or self-care (01) | LOC: WOUND 13:00 | PROVIDERS: ATTEND Surgery | DX: E11.9 Type 2 diabetes mellitus without complications (principal); I10 Essential (primary) hypertension | CPT/HCPCS: 99212; G0463 ==

== ENCOUNTER 2019-05-30 11:28 | Emergency (ER) | payer MEDICARE ==
[2019-05-30 11:42] VITALS: BP 161/71
--- NOTE | 2019-05-30 11:43 | Emergency Department Report ---
Blank Doc - Documentation Documentation: 58-year-old female that presents with right lateral distal tib-fib and ankle p ain with history of open wounds. Denies any trauma. Stated swelling is a new onset with redness. This initial assessment/diagnostic orders/clinical plan/treatment(s) is/are subject to change based on patient's health status, clinical progression and re- assessment by fellow clinical providers in the ED. Further treatment and workup at subsequent clinical providers discretion. Patient/guardians urged not to elope from the ED as their condition may be serious if not clinically assessed and managed. Initial orders include: 1- Patient sent to [facility] for further evaluation and treatment 2- xrays
--- NOTE | 2019-05-30 12:50 | XRay Report ---
Right leg-3 views Right ankle-3 views INDICATION: pain with redness and swelling. COMPARISON: None. IMPRESSION: Mild soft tissue swelling about the lateral and anterior aspects of the ankle with no ac yumi fracture identified. 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 Similar irregular periosteal/cor tical change involving the proximal to mid fibula-correlate for any previous trauma history. Signer Name: Stanley Prince MD Signed: 05/30/2019 12:46 PM Workstation Name: [id number]
[2019-05-30] MEDS ORDERED: HYDROcodone/ACETAMINOPHEN 5-325 MG TAB PO ONE (12:52)
[2019-05-30] MEDS ORDERED: CLINDAMYCIN 150 MG/ML VIAL 6 ML IM ONE (12:52)
--- NOTE | 2019-05-30 13:47 | Emergency Department Report ---
ED General Adult HPI - General Chief complaint: Extremity Injury, Lower Stated complaint: RT LEG PAIN/EXTREME Time Seen by Provider: 05/30/19 11:42 Source: patient Mode of arrival: Ambulatory Limitations: No Limitations - History of Present Illness Initial comments: This is a 58-year-old female with a history of diabetes controlled with insulin and glyburide who presents to ED complaining of right lower leg wound done initially noticed a month ago. Patient states that she went to the infectious disease specialist who told her to follow up with her primary care doctor. Patient states she has an appointment on June 21. Patient states that the wound lesion is heard and an H and so she decided to come in to be evaluated. She denies any injury, fever, chills, nausea vomiting shortness of breath, difficulty walking. Severity scale (0 -10): 8 - Related Data Home Medications Medication Instructions Recorded Confirmed Last Taken Lisinopril [Zestril TAB] 10 mg PO QDAY 01/13/14 01/30/14 01/30/14 Triamterene [Dyrenium] 50 mg PO DAILY 01/14/14 01/30/14 01/30/14 glyBURIDE [Diabeta] 5 mg PO BID 01/14/14 01/30/14 01/30/14 Previous Rx's Medication Instructions Recorded Last Taken Type Insulin Glargine,Hum.rec.anlog 30 unit SQ QHS 30 Days ml 01/17/14 01/30/14 Rx [Lantus] Warfarin Sodium [Coumadin] 7.5 mg PO DAILY #30 tablet 01/17/14 01/30/14 Rx Enoxaparin 70 mg SUB-Q Q12HR #8 syringe 02/04/14 Unknown Rx oxyCODONE /ACETAMINOPHEN [Percocet 1 tab PO Q6H PRN #15 tablet 02/04/14 Unknown Rx 5/325 mg] Acetaminophen [Tylenol Arthritis] 650 mg PO Q6HR PRN #30 tablet.er 04/19/17 Unknown Rx Insulin Glargine [Lantus] 20 units SQ QHS #1 vial 04/19/17 Unknown Rx Mupirocin [Bactroban 2%] 1 applic TP TID #1 tube 04/19/17 Unknown Rx Naphazoline HCl/Pheniramine 10 ml OP Q6H PRN #1 drops 07/22/17 Unknown Rx [Naphcon-A Eye Drops] Tobramycin 0.3% [Tobrex] 1 drop OS Q4H #1 bottle 07/22/17 Unknown Rx Clindamycin [Clindamycin CAP] 300 mg PO Q8H #21 cap 05/30/19 Unknown Rx Ibuprofen [Motrin 800 MG tab] 800 mg PO Q8HR PRN #30 tablet 05/30/19 Unknown Rx cephALEXin [Keflex] 500 mg PO Q12HR #14 cap 05/30/19 Unknown Rx Allergies Allergy/AdvReac Type Severity Reaction Status Date / Time No Known Allergies Allergy Unverified 05/30/19 11:30 ED Review of Systems ROS: Stated complaint: RT LEG PAIN/EXTREME Other details as noted in HPI Comment: All other systems reviewed and negative ED Past Medical Hx - Past Medical History Hx Hypertension: Yes Hx Congestive Heart Failure: No Hx Diabetes: Yes Hx Deep Vein Thrombosis: Yes Hx Asthma: No Hx COPD: No - Surgical History Additional Surgical History: c section x 2 - Social History Smoking Status: Never Smoker Substance Use Type: None - Medications Home Medications: Home Medications Medication Instructions Recorded Confirmed Last Taken Type Lisinopril [Zestril TAB] 10 mg PO QDAY 01/13/14 01/30/14 01/30/14 History Triamterene [Dyrenium] 50 mg PO DAILY 01/14/14 01/30/14 01/30/14 History glyBURIDE [Diabeta] 5 mg PO BID 01/14/14 01/30/14 01/30/14 History Insulin Glargine,Hum.rec.anlog 30 unit SQ QHS 30 Days ml 01/17/14 01/30/14 01/30/14 Rx [Lantus] Warfarin Sodium [Coumadin] 7.5 mg PO DAILY #30 tablet 01/17/14 01/30/14 01/30/14 Rx Enoxaparin 70 mg SUB-Q Q12HR #8 syringe 02/04/14 Unknown Rx oxyCODONE /ACETAMINOPHEN [Percocet 1 tab PO Q6H PRN #15 tablet 02/04/14 Unknown Rx 5/325 mg] Acetaminophen [Tylenol Arthritis] 650 mg PO Q6HR PRN #30 tablet.er 04/19/17 Unknown Rx Insulin Glargine [Lantus] 20 units SQ QHS #1 vial 04/19/17 Unknown Rx Mupirocin [Bactroban 2%] 1 applic TP TID #1 tube 04/19/17 Unknown Rx Naphazoline HCl/Pheniramine 10 ml OP Q6H PRN #1 drops 07/22/17 Unknown Rx [Naphcon-A Eye Drops] Tobramycin 0.3% [Tobrex] 1 drop OS Q4H #1 bottle 07/22/17 Unknown Rx Clindamycin [Clindamycin CAP] 300 mg PO Q8H #21 cap 05/30/19 Unknown Rx Ibuprofen [Motrin 800 MG tab] 800 mg PO Q8HR PRN #30 tablet 05/30/19 Unknown Rx cephALEXin [Keflex] 500 mg PO Q12HR #14 cap 05/30/19 Unknown Rx ED Physical Exam - General Limitations: No Limitations General appearance: alert, in no apparent distress - Head Head exam: Present: atraumatic, normocephalic - Eye Eye exam: Present: normal appearance - ENT ENT exam: Present: mucous membranes moist - Neck Neck exam: Present: normal inspection - Respiratory Respiratory exam: Present: normal lung sounds bilaterally. Absent: respiratory distress - Cardiovascular Cardiovascular Exam: Present: regular rate, normal rhythm. Absent: systolic murmur, diastolic murmur, rubs, gallop - GI/Abdominal GI/Abdominal exam: Present: soft, normal bowel sounds - Extremities Exam Extremities exam: Present: normal inspection, full ROM. Absent: normal capillary refill, joint swelling, calf tenderness (to the right calf) - Back Exam Back exam: Present: normal inspection - Neurological Exam Neurological exam: Present: alert, oriented X3, normal gait - Psychiatric Psychiatric exam: Present: normal affect, normal mood - Skin Skin exam: Present: warm, dry, intact, normal color, erythema, other (2 cm dry, healing wound surrounded by cellulitis. Mildly tender to palpation). Absent: rash ED Course Vital Signs 05/30/19 11:41 Temperature 98.3 F Pulse Rate 90 Respiratory 18 Rate Blood Pressure 161/71 O2 Sat by Pulse 100 Oximetry ED Medical Decision Making - Radiology Data Radiology results: report reviewed, image reviewed INDICATION: pain with redness and swelling. COMPARISON: None. IMPRESSION: Mild soft tissue swelling about the lateral and anterior aspects of the ankle with no acute fracture identified. 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 Similar irregular periosteal/cortical change involving the proximal to mid fibula-correlate for any previous trauma history. Signer Name: Stanley Prince MD Signed: 05/30/2019 12:46 PM Workstation Name: [id number] Transcribed By: LELAND Dictated By: Stanley Prince MD Electronically Authenticated By: Stanley Prince MD Signed Date/Time: 05/30/19 1246 - Medical Decision Making This is a 58-year-old female who presents with the healing wound with cellulitis, right lower leg. X-ray shows no acute findings, see report above. Patient to be treated with antibiotics for cellulitis Vital signs are normal patient is in no acute distress. Discussed x-ray findings with the patient. Discussed patient to keep her appointment for the of this month. Critical care attestation.: If time is entered above; I have spent that time in minutes in the direct care of this critically ill patient, excluding procedure time. ED Disposition Clinical Impression: Cellulitis, Wound cellulitis Disposition: DC-01 TO HOME OR SELFCARE Is pt being admited?: No Does the pt Need Aspirin: No Condition: Stable Instructions: Acute Wound Care (ED), Cellulitis (ED) Additional Instructions: Make sure to follow up with the primary care physician as discussed. Take all your medications as you've been prescribed. If you have any worsening symptoms or develop new symptoms please return to ED immediately. Referrals: [facility] [Outside] - 3-5 Days [facility] [Outside] - 3-5 Days Forms: Work/School Release Form Time of Disposition: 14:03
== END 2019-05-30 14:47 | disposition home or self-care (01) ==
LOC: ED 11:28
DX: L03.115 Cellulitis of right lower limb (principal); I10 Essential (primary) hypertension; E11.9 Type 2 diabetes mellitus without complications; Z86.718 Personal history of other venous thrombosis and embolism
CPT/HCPCS: 82962; 96372

== ENCOUNTER 2019-07-06 13:25 | Outpatient (CLI) | payer MEDICARE ==
[2019-07-06] MEDS ORDERED: LIDOCAINE (4%) 40 MG/ML TOPICAL SOLN 50 ML BOTTLE TP ONE (13:48)
[2019-07-06] MEDS ORDERED: SILVER NITRATE APPLICATOR 1 EA TP ONE (14:17)
== END 2019-07-06 13:26 | disposition home or self-care (01) ==
LOC: WOUND 13:25
PROVIDERS: ATTEND Surgery
DX: E11.622 Type 2 diabetes mellitus with other skin ulcer (principal); L97.212 Non-pressure chronic ulcer of right calf with fat layer exposed; I10 Essential (primary) hypertension; F41.9 Anxiety disorder, unspecified; X58.XXXD Exposure to other specified factors, subsequent encounter
CPT/HCPCS: 11042; 11045; G0463; 99215

== ENCOUNTER 2019-07-13 13:58 | Outpatient (CLI) | payer MEDICARE ==
[~2019-07-13 13:58] MED LIST changes: +LIDOCAINE (4%) 40 MG/ML TOPICAL SOLN 50 ML BOTTLE TP ONE; -VANCOMYCIN/NS 1 GM/250 ML 1 GM/250 ML BAG IV SCH
== END 2019-07-13 13:59 | disposition home or self-care (01) ==
LOC: WOUND 13:58
PROVIDERS: ATTEND Surgery
DX: E11.622 Type 2 diabetes mellitus with other skin ulcer (principal); L97.212 Non-pressure chronic ulcer of right calf with fat layer exposed; I10 Essential (primary) hypertension; F41.9 Anxiety disorder, unspecified; X58.XXXD Exposure to other specified factors, subsequent encounter

== ENCOUNTER 2019-07-20 12:59 | Outpatient (CLI) | payer MEDICARE ==
[2019-07-20] MEDS ORDERED: LIDOCAINE (4%) 40 MG/ML TOPICAL SOLN 50 ML BOTTLE TP ONE (14:18)
[2019-07-20] MEDS ORDERED: SODIUM CHLORIDE 0.9% IRR 500 ML BOTTLE IR ONE (14:48)
== END 2019-07-20 13:00 | disposition home or self-care (01) ==
LOC: WOUND 12:59
PROVIDERS: ATTEND Surgery
DX: E11.622 Type 2 diabetes mellitus with other skin ulcer (principal); L97.212 Non-pressure chronic ulcer of right calf with fat layer exposed; I10 Essential (primary) hypertension; Z86.718 Personal history of other venous thrombosis and embolism
CPT/HCPCS: 82962

== ENCOUNTER 2019-08-03 13:56 | Outpatient (CLI) | payer MEDICARE ==
[2019-08-03] MEDS ORDERED: LIDOCAINE (4%) 40 MG/ML TOPICAL SOLN 50 ML BOTTLE TP ONE (14:05)
[2019-08-03] MEDS ORDERED: SODIUM CHLORIDE 0.9% IRR 500 ML BOTTLE IR ONE (14:40)
== END 2019-08-03 13:57 | disposition home or self-care (01) ==
LOC: WOUND 13:56
PROVIDERS: ATTEND Surgery
DX: E11.622 Type 2 diabetes mellitus with other skin ulcer (principal); L97.212 Non-pressure chronic ulcer of right calf with fat layer exposed; I10 Essential (primary) hypertension; Z86.718 Personal history of other venous thrombosis and embolism

== ENCOUNTER 2019-08-12 13:20 | Outpatient (CLI) | payer MEDICARE ==
[2019-08-12] MEDS ORDERED: LIDOCAINE (4%) 40 MG/ML TOPICAL SOLN 50 ML BOTTLE TP ONE (13:25)
== END 2019-08-12 13:21 | disposition home or self-care (01) ==
LOC: WOUND 13:20
PROVIDERS: ATTEND Surgery
DX: E11.622 Type 2 diabetes mellitus with other skin ulcer (principal); L97.212 Non-pressure chronic ulcer of right calf with fat layer exposed; I10 Essential (primary) hypertension; Z86.718 Personal history of other venous thrombosis and embolism

== ENCOUNTER 2019-08-17 14:02 | Outpatient (CLI) | payer MEDICARE ==
[2019-08-17] MEDS ORDERED: LIDOCAINE (4%) 40 MG/ML TOPICAL SOLN 50 ML BOTTLE TP ONE (14:28)
[2019-08-17] MEDS ORDERED: SODIUM CHLORIDE 0.9% IRR 500 ML BOTTLE IR ONE (14:35)
== END 2019-08-17 14:03 | disposition home or self-care (01) ==
LOC: WOUND 14:02
PROVIDERS: ATTEND Surgery
DX: E11.622 Type 2 diabetes mellitus with other skin ulcer (principal); L97.212 Non-pressure chronic ulcer of right calf with fat layer exposed; I10 Essential (primary) hypertension; Z86.718 Personal history of other venous thrombosis and embolism

== ENCOUNTER 2019-08-24 14:19 | Outpatient (CLI) | payer MEDICARE ==
[2019-08-24] MEDS ORDERED: LIDOCAINE (4%) 40 MG/ML TOPICAL SOLN 50 ML BOTTLE TP ONE (14:26)
== END 2019-08-24 14:20 | disposition home or self-care (01) ==
LOC: WOUND 14:19
PROVIDERS: ATTEND Surgery
DX: E11.622 Type 2 diabetes mellitus with other skin ulcer (principal); L97.212 Non-pressure chronic ulcer of right calf with fat layer exposed; I10 Essential (primary) hypertension; Z86.718 Personal history of other venous thrombosis and embolism

== ENCOUNTER 2019-08-31 14:34 | Outpatient (CLI) | payer MEDICARE ==
[2019-08-31] MEDS ORDERED: LIDOCAINE (4%) 40 MG/ML TOPICAL SOLN 50 ML BOTTLE TP ONE (14:35)
[2019-08-31] MEDS ORDERED: SODIUM CHLORIDE 0.9% IRR 500 ML BOTTLE IR ONE (14:39)
== END 2019-08-31 14:35 | disposition home or self-care (01) ==
LOC: WOUND 14:34
PROVIDERS: ATTEND Surgery
DX: E11.622 Type 2 diabetes mellitus with other skin ulcer (principal); L97.212 Non-pressure chronic ulcer of right calf with fat layer exposed; I10 Essential (primary) hypertension; Z86.718 Personal history of other venous thrombosis and embolism

== ENCOUNTER 2019-09-07 14:34 | Outpatient (CLI) | payer MEDICARE ==
[2019-09-07] MEDS ORDERED: LIDOCAINE (4%) 40 MG/ML TOPICAL SOLN 50 ML BOTTLE TP SCH (14:35)
[2019-09-07] MEDS ORDERED: SODIUM CHLORIDE 0.9% IRR 500 ML BOTTLE IR SCH (14:35)
== END 2019-09-07 14:35 | disposition home or self-care (01) ==
LOC: WOUND 14:34
PROVIDERS: ATTEND Surgery
DX: E11.622 Type 2 diabetes mellitus with other skin ulcer (principal); L97.212 Non-pressure chronic ulcer of right calf with fat layer exposed; I10 Essential (primary) hypertension; Z86.718 Personal history of other venous thrombosis and embolism
CPT/HCPCS: 99214; G0463

== ENCOUNTER 2019-09-14 13:43 | Outpatient (CLI) | payer MEDICARE ==
[2019-09-14] MEDS ORDERED: LIDOCAINE (4%) 40 MG/ML TOPICAL SOLN 50 ML BOTTLE TP ONE (14:07)
[2019-09-14] MEDS ORDERED: SODIUM CHLORIDE 0.9% IRR 500 ML BOTTLE IR ONE (14:08)
== END 2019-09-14 13:44 | disposition home or self-care (01) ==
LOC: WOUND 13:43
PROVIDERS: ATTEND Surgery
DX: E11.622 Type 2 diabetes mellitus with other skin ulcer (principal); L97.212 Non-pressure chronic ulcer of right calf with fat layer exposed; I10 Essential (primary) hypertension; Z86.718 Personal history of other venous thrombosis and embolism

== ENCOUNTER 2019-09-21 14:05 | Outpatient (CLI) | payer MEDICARE ==
[2019-09-21] MEDS ORDERED: LIDOCAINE (4%) 40 MG/ML TOPICAL SOLN 50 ML BOTTLE TP ONE (15:35)
[2019-09-21] MEDS ORDERED: SODIUM CHLORIDE 0.9% IRR 500 ML BOTTLE IR ONE (16:00)
== END 2019-09-21 14:06 | disposition home or self-care (01) ==
LOC: WOUND 14:05
PROVIDERS: ATTEND Surgery
DX: E11.622 Type 2 diabetes mellitus with other skin ulcer (principal); L97.212 Non-pressure chronic ulcer of right calf with fat layer exposed; I10 Essential (primary) hypertension; Z86.718 Personal history of other venous thrombosis and embolism

== ENCOUNTER 2019-09-29 14:11 | Outpatient (CLI) | payer MEDICARE ==
[2019-09-29] MEDS ORDERED: LIDOCAINE (4%) 40 MG/ML TOPICAL SOLN 50 ML BOTTLE TP ONE (14:16)
[2019-09-29] MEDS ORDERED: SODIUM CHLORIDE 0.9% IRR 500 ML BOTTLE IR ONE (14:16)
== END 2019-09-29 14:12 | disposition home or self-care (01) ==
LOC: WOUND 14:11
PROVIDERS: ATTEND Surgery
DX: E11.622 Type 2 diabetes mellitus with other skin ulcer (principal); L97.212 Non-pressure chronic ulcer of right calf with fat layer exposed; I10 Essential (primary) hypertension; Z86.718 Personal history of other venous thrombosis and embolism

== ENCOUNTER 2019-10-06 12:56 | Outpatient (CLI) | payer MEDICARE ==
[2019-10-06] MEDS ORDERED: SODIUM CHLORIDE 0.9% IRR 500 ML BOTTLE IR ONE (13:04)
== END 2019-10-06 12:57 | disposition home or self-care (01) ==
LOC: WOUND 12:56
PROVIDERS: ATTEND Surgery
DX: E11.622 Type 2 diabetes mellitus with other skin ulcer (principal); L97.212 Non-pressure chronic ulcer of right calf with fat layer exposed; I10 Essential (primary) hypertension; Z86.718 Personal history of other venous thrombosis and embolism
CPT/HCPCS: 99213; G0463

== ENCOUNTER 2019-10-13 13:27 | Outpatient (CLI) | payer MEDICARE ==
[2019-10-13] MEDS ORDERED: LIDOCAINE (4%) 40 MG/ML TOPICAL SOLN 50 ML BOTTLE TP ONE (13:36)
[2019-10-13] MEDS ORDERED: SODIUM CHLORIDE 0.9% IRR 500 ML BOTTLE IR SCH (14:30)
== END 2019-10-13 13:28 | disposition home or self-care (01) ==
LOC: WOUND 13:27
PROVIDERS: ATTEND Surgery
DX: E11.622 Type 2 diabetes mellitus with other skin ulcer (principal); L97.212 Non-pressure chronic ulcer of right calf with fat layer exposed; I10 Essential (primary) hypertension; Z86.718 Personal history of other venous thrombosis and embolism

== ENCOUNTER 2019-10-20 12:57 | Outpatient (CLI) | payer MEDICARE ==
[2019-10-20] MEDS ORDERED: LIDOCAINE (4%) 40 MG/ML TOPICAL SOLN 50 ML BOTTLE TP ONE (13:15)
[2019-10-20] MEDS ORDERED: SODIUM CHLORIDE 0.9% IRR 500 ML BOTTLE IR ONE (13:30)
== END 2019-10-20 12:58 | disposition home or self-care (01) ==
LOC: WOUND 12:57
PROVIDERS: ATTEND Surgery
DX: E11.622 Type 2 diabetes mellitus with other skin ulcer (principal); L97.212 Non-pressure chronic ulcer of right calf with fat layer exposed; I10 Essential (primary) hypertension; Z86.718 Personal history of other venous thrombosis and embolism

== ENCOUNTER 2019-10-27 12:55 | Outpatient (CLI) | payer MEDICARE ==
[2019-10-27] MEDS ORDERED: LIDOCAINE (4%) 40 MG/ML TOPICAL SOLN 50 ML BOTTLE TP ONE (12:59)
[2019-10-27] MEDS ORDERED: SODIUM CHLORIDE 0.9% IRR 500 ML BOTTLE IR ONE (13:07)
== END 2019-10-27 12:56 | disposition home or self-care (01) ==
LOC: WOUND 12:55
PROVIDERS: ATTEND Surgery
DX: E11.622 Type 2 diabetes mellitus with other skin ulcer (principal); L97.212 Non-pressure chronic ulcer of right calf with fat layer exposed; I10 Essential (primary) hypertension; Z86.718 Personal history of other venous thrombosis and embolism

== ENCOUNTER 2019-11-10 12:54 | Outpatient (CLI) | payer MEDICARE ==
[2019-11-10] MEDS ORDERED: LIDOCAINE (4%) 40 MG/ML TOPICAL SOLN 50 ML BOTTLE TP ONE (13:04)
[2019-11-10] MEDS ORDERED: SODIUM CHLORIDE 0.9% IRR 500 ML BOTTLE IR ONE (13:10)
== END 2019-11-10 12:55 | disposition home or self-care (01) ==
LOC: WOUND 12:54
PROVIDERS: ATTEND Surgery
DX: E11.622 Type 2 diabetes mellitus with other skin ulcer (principal); L97.212 Non-pressure chronic ulcer of right calf with fat layer exposed; I10 Essential (primary) hypertension; Z86.718 Personal history of other venous thrombosis and embolism

== ENCOUNTER 2019-11-18 13:26 | Outpatient (CLI) | payer MEDICARE ==
[2019-11-18] MEDS ORDERED: LIDOCAINE (4%) 40 MG/ML TOPICAL SOLN 50 ML BOTTLE TP ONE (13:27)
== END 2019-11-18 13:27 | disposition home or self-care (01) ==
LOC: WOUND 13:26
PROVIDERS: ATTEND Surgery
DX: E11.622 Type 2 diabetes mellitus with other skin ulcer (principal); L97.212 Non-pressure chronic ulcer of right calf with fat layer exposed; I10 Essential (primary) hypertension; Z86.718 Personal history of other venous thrombosis and embolism
CPT/HCPCS: 99214; G0463

== ENCOUNTER 2020-05-15 14:16 | Outpatient (CLI) | payer MEDICARE ==
--- NOTE | 2020-05-16 09:57 | Mammography Report ---
DIGITAL SCREENING MAMMOGRAM WITH CAD, 05/15/2020 INDICATION: Routine screening mammography. SCREENING MAMMO TECHNIQUE: Digital bilateral 2D mammography was obtained in the craniocaudal and mediolateral obliq ue projections. This examination was interpreted with the benefit of Computer-Aided Detection analysi s. COMPARISON: 11/06/2018 FINDINGS: Breast Density: There are scattered areas of fibroglandular density. There is no evidence of dominant mass, suspicious calcifications or architectural distortion in eithe r breast. IMPRESSION: No evidence of malignancy Follow up recommendation: Routine yearly BI-RADS Category 1: Negative. A "normal" or negative report should not discourage follow up or biopsy of a clinically significant f inding. A written summary of these findings will be mailed to the patient. The patient will be entered into a mammography reporting system which will generate a reminder letter for the patient's next appointmen t at the appropriate interval. [employer] recommends yearly mammograms starting at age 40 and continuing as l janak as a woman is in good health. Breast MRI is recommended for women with an approximate 20-25% or greater lifetime risk of breast cancer, including women with a strong family history of breast or ova hailee cancer or who have been treated for Hodgkin's disease. Signer Name: Daryn Angeles MD Signed: 05/16/2020 9:45 AM Workstation Name: [id number]
== END 2020-05-15 14:17 | disposition home or self-care (01) ==
LOC: MAMMO 14:16
PROVIDERS: ATTEND Family Medicine
DX: Z12.31 Encounter for screening mammogram for malignant neoplasm of breast (principal)
CPT/HCPCS: 77067